=== PATIENT | female | born 2000 | race Two or more races ===

== ENCOUNTER 2021-05-28 13:25 | Inpatient (IN) | payer OTHER ==
[~2021-05-28] VITALS: Ht 175.3 cm; Wt 106.3 kg
[2021-05-28 14:15] LABS: Mean Corpuscular Hgb Conc. 34.3 g/dL (32.0-36.0); Red Cell Distribution Width 14.2 % (11.8-14.3)
[2021-05-28 14:17] LABS: Hematocrit 30.7 % (36.0-46.0); Hemoglobin 10.5 g/dL (12.2-16.2); Mean Corpuscular Volume 78.8 fL (80.0-100.0); White Blood Cell 8.2 10^3/uL (4.4-10.8)
[2021-05-28] MEDS ORDERED: ACETAMINOPHEN 325 MG TAB PO ONE ×2 (14:30→16:00)
[2021-05-28] MEDS ORDERED: SODIUM CHLORIDE 0.9% 1,000 ML IV ONE ×2 (14:30→17:30)
[2021-05-28 14:32] LABS: Potassium 3.2 mmol/L (3.5-5.1)
[2021-05-28 14:36] LABS: Bilirubin, Total 0.5 mg/dL (0.2-1.0); Total Protein 10.2 g/dL (6.4-8.2)
[2021-05-28 14:56] LABS: Basophils % (manual) 0 (0.0-2.0); Blast Cells 0; Eosinophils % (manual) 0 (0-7); Metamyelocytes % 0; Myelocytes % 0; Promyelocytes % 0; Reactive Lymphocytes 0
[2021-05-28] MEDS ORDERED: SODIUM CHLORIDE 0.9% 1,000 ML IVB ONE (15:15)
[2021-05-28 15:47] LABS: Magnesium 1.5 mg/dL (1.6-2.6)
[2021-05-28 16:09] LABS: Beta HCG, Quantitative < 1 mlU/mL (1-3); Thyroid Stimulating Hormone 0.69 uIU/mL (0.358-3.74)
[2021-05-28 16:37] LABS: Band Neutrophils % (manual) 5; Lymphocytes % (manual) 2 (10.0-50.0); Monocytes % (manual) 6 (0-12)
[2021-05-28] MEDS ORDERED: POTASSIUM EFFERVESENT TAB 25 MEQ PO ONE (17:00)
[2021-05-28 17:28] LABS: Urine Amorphous Crystal FEW /hpf (None Seen); Urine Bacteria FEW /hpf (None Seen); Urine Blood Negative /uL (Negative); Urine Mucus FEW (None Seen); Urine Specific Gravity 1.011 (1.001-1.035); Urine WBC 1 /hpf (0 - 5)
[2021-05-28] MEDS: MAGNESIUM SULFATE 1GM/100ML 100 ML IV SCH ×2 (17:28→20:27)
[2021-05-28] MEDS ORDERED: NITROGLYCERIN 0.4 MG SL TAB SL PRN (18:15)
[2021-05-28] MEDS ORDERED: MORPHINE SULFATE INJECTION 2 MG/ML SYRG IV PRN ×2 (18:15→20:30)
[2021-05-28] MEDS ORDERED: cefTRIAXone 1GM/50ML D5W 50 ML IV ONE ×2 (18:15→19:00)
[2021-05-28] MEDS ORDERED: VANCOMYCIN PER PHARMACY 0 MG IV SCH (18:30)
[2021-05-28] MEDS ORDERED: ACYCLOVIR SOD 50MG/ML 800 MG in SODIUM CHL 0.9% 250 ML IV ONE (18:30)
[2021-05-28] MEDS ORDERED: DexAMETHasone SOD PHOS 10MG/1ML VIAL INJ IV ONE (19:00)
[2021-05-28] MEDS ORDERED: POTASSIUM CHL 20 Meq TABLET PO ONE (19:00)
[2021-05-28] MEDS ORDERED: METOPROLOL TARTRATE 1MG/1ML-5ML VIAL IV PRN (19:00)
[2021-05-28 19:15] LABS: Amphetamine Screen, Urine NEGATIVE (NEGATIVE); Barbiturate Scree,Urine NEGATIVE (NEGATIVE); Benzodiazephine Screen, Urine NEGATIVE (NEGATIVE); Cannabinoid Screen, Urine NEGATIVE (NEGATIVE); Cocaine Screen, Urine NEGATIVE (NEGATIVE); Opiate Scree,Urine NEGATIVE (NEGATIVE); Phencyclidine Screen, Urine NEGATIVE (NEGATIVE)
[2021-05-28] MEDS ORDERED: MAGNESIUM SULFATE 1GM/100ML 100 ML IV ONE (19:30)
[2021-05-28] MEDS ORDERED: diphenhdrAMINE HCL 50 MG/1 ML VL IV ONE (19:45)
[2021-05-28] MEDS ORDERED: ACETAMINOPHEN 650 mg PER 20.3 mL UD GT ONE (19:45)
[2021-05-28] MEDS ORDERED: IBUPROFEN 400 MG TAB PO ONE (19:45)
[2021-05-28 20:26] LABS: INR 1.16 (0.9-1.15); Partial Thromboplastin Time 30.8 sec (23.6-33.0)
[2021-05-28] MEDS ORDERED: ACETAMINOPHEN 325 MG TAB PO PRN (20:30)
[2021-05-28] MEDS ORDERED: FOLIC ACID 1 MG TAB PO ONE (20:30)
[2021-05-28] MEDS ORDERED: LORazepam 0.5 MG TAB PO PRN (20:30)
[2021-05-28] MEDS ORDERED: IPRATROPIUM BROM 0.5 MG/2.5ML INH SOL NEB ONE (20:30)
[2021-05-28] MEDS ORDERED: PANTOPRAZOLE 40 MG/10 ML VIAL INJ IV ONE (20:30)
[2021-05-28] MEDS ORDERED: POTASSIUM CHL 20MEQ/100ML 100 ML IV ONE (20:30)
[2021-05-28] MEDS ORDERED: ARTIFICIAL TEARS 15ml EACHEYE PRN (20:30)
[2021-05-28] MEDS ORDERED: SUCRALFATE 1 GM/10 ML ORAL SUSP PO ONE (20:30)
[2021-05-28] MEDS ORDERED: HYDROcodone-ACET 5/325MG TAB PO ONE (20:30)
[2021-05-28] MEDS ORDERED: SODIUM CHLORIDE 0.9% 1,000 ML IV SCH (20:30)
[2021-05-28] MEDS ORDERED: ONDANSETRON HCL 4 MG/2 ML VIAL IV PRN (20:30)
[2021-05-28] MEDS ORDERED: FERROUS SULFATE 325mg EC TAB PO ONE (20:30)
[2021-05-28] MEDS ORDERED: DOCUSATE SOD 100 MG CAP PO PRN (20:30)
[2021-05-28 20:36] LABS: Magnesium 1.8 mg/dL (1.6-2.6); Phosphorus 3.3 mg/dL (2.5-4.90)
[2021-05-28 22:00] VITALS: BP 94/56
[2021-05-28] MEDS ORDERED: IPRATROPIUM BROM 0.5 MG/2.5ML INH SOL NEB SCH (22:00)
[2021-05-28] MEDS: DexAMETHasone SOD PHOS 10MG/1ML VIAL INJ IV SCH (23:49)
[2021-05-28] MEDS: ATORVASTATIN 20 MG TAB PO SCH (23:50)
[2021-05-28] MEDS: hydrOXYchloroQUINE SULFATE 200 MG TAB PO SCH (23:50)
[2021-05-28] MEDS: VANCOMYCIN 1GM/250ML 250 ML IV SCH (23:52)
[2021-05-29] VITALS (7 sets, daily range): BP systolic 94–120; BP diastolic 17–73
[2021-05-29] MEDS ORDERED: METH2.5T PO (01:14)
[2021-05-29] MEDS ORDERED: HYDR200T36 PO (01:17)
[2021-05-29] MEDS ORDERED: BELI200I SC (01:17)
[2021-05-29] MEDS: DexAMETHasone SOD PHOS 10MG/1ML VIAL INJ IV SCH ×2 (06:20→14:00)
[2021-05-29] MEDS: SUCRALFATE 1 GM/10 ML ORAL SUSP PO SCH ×4 (06:21→22:07)
[2021-05-29 06:40] LABS: Basophils # (auto) 0 10 ^3/uL (0-0.2); Basophils % (auto) 0.3 % (0.0-2.0); Eosinophils # (auto) 0 10 ^3/uL (0-0.8); Hematocrit 28.5 % (36.0-46.0); Hemoglobin 9.7 g/dL (12.2-16.2); Lymphocytes # (auto) 0.2 10 ^3/uL (0.4-5.4); Lymphocytes % (auto) 1.7 % (10.0-50.0); Mean Corpuscular Hemoglobin 27.1 pg (28.0-32.0); Mean Corpuscular Hgb Conc. 34.1 g/dL (32.0-36.0); Mean Corpuscular Volume 79.4 fL (80.0-100.0); Monocytes # (auto) 0.5 10 ^3/uL (0-1.3); Monocytes % (auto) 3.8 % (0.0-12.0); Neutrophils # (auto) 11.4 10 ^3/uL (1.6-8.6); Neutrophils % (auto) 94.2 % (37.0-80.0); Nucleated Red Blood Cells % 0.1 %; Red Blood Cells 3.59 10^6/uL (4.0-5.20); Red Cell Distribution Width 14.6 % (11.8-14.3); White Blood Cell 12.1 10^3/uL (4.4-10.8)
[2021-05-29 06:56] LABS: Albumin 2.3 g/dL (3.4-5.0); Calcium 7.3 mg/dL (8.5-10.1); Magnesium 2.5 mg/dL (1.6-2.6); Potassium 3.4 mmol/L (3.5-5.1)
[2021-05-29 07:08] LABS: BUN/Creatinine Ratio 9.8; Bilirubin, Total 0.5 mg/dL (0.2-1.0); Phosphorus 3.2 mg/dL (2.5-4.90); Total Protein 9.5 g/dL (6.4-8.2); Uric Acid 5.4 mg/dL (2.6-6.0)
[2021-05-29 07:26] LABS: CRP High Sensitivity 13.9 mg/dL (< 0.3)
[2021-05-29 07:28] LABS: INR 1.17 (0.9-1.15); Partial Thromboplastin Time 31.2 sec (23.6-33.0)
[2021-05-29] MEDS: FERROUS SULFATE 325mg EC TAB PO SCH ×3 (08:00→17:58)
[2021-05-29] MEDS: CHOLECALCIFEROL (VITD3) 2,000 UNIT CAP/TAB PO SCH (10:00)
[2021-05-29] MEDS: FOLIC ACID 1 MG TAB PO SCH (10:00)
[2021-05-29] MEDS: PANTOPRAZOLE 40 MG/10 ML VIAL INJ IV SCH (10:00)
[2021-05-29] MEDS: CEFTRIAXONE SODIUM 2 GM in D5W 5% 50 ML IV SCH (10:00)
[2021-05-29] MEDS: ENOXAPARIN SOD 40 MG/0.4 ML SYRINGE SC SCH (10:00)
[2021-05-29] MEDS: hydrOXYchloroQUINE SULFATE 200 MG TAB PO SCH ×2 (10:00→22:08)
[2021-05-29] MEDS: THIAMINE HCL 100 MG TAB PO SCH (10:00)
[2021-05-29] MEDS: CYANOCOBALAMIN 500 MCG TAB PO SCH (10:00)
[2021-05-29] MEDS ORDERED: POTASSIUM CHL 20MEQ/100ML 100 ML IV ONE (11:45)
[2021-05-29] MEDS: VANCOMYCIN 1GM/250ML 250 ML IV SCH (12:00)
[2021-05-29] MEDS: FUROSEMIDE 20 MG/2 ML VIAL IV SCH (17:57)
[2021-05-29] MEDS: ATORVASTATIN 20 MG TAB PO SCH (22:07)
[2021-05-29] MEDS: MAGNESIUM OXIDE 400 MG TAB PO SCH (22:07)
[2021-05-29] MEDS: POTASSIUM CHL 20 Meq TABLET PO SCH (22:08)
[2021-05-30] MEDS ORDERED: VANCOMYCIN 1GM/250ML 250 ML IV ONE (00:17)
[2021-05-30] MEDS: VANCOMYCIN 1GM/250ML 250 ML IV SCH ×3 (00:25→20:30)
[2021-05-30 05:00] VITALS: BP 114/75
[2021-05-30 06:21] LABS: Basophils # (auto) 0 10 ^3/uL (0-0.2); Basophils % (auto) 0.4 % (0.0-2.0); Eosinophils # (auto) 0 10 ^3/uL (0-0.8); Hematocrit 26.2 % (36.0-46.0); Hemoglobin 9.3 g/dL (12.2-16.2); Lymphocytes # (auto) 0.3 10 ^3/uL (0.4-5.4); Lymphocytes % (auto) 3.2 % (10.0-50.0); Mean Corpuscular Hemoglobin 28.1 pg (28.0-32.0); Mean Corpuscular Hgb Conc. 35.6 g/dL (32.0-36.0); Mean Corpuscular Volume 79.1 fL (80.0-100.0); Monocytes # (auto) 0.6 10 ^3/uL (0-1.3); Monocytes % (auto) 5.5 % (0.0-12.0); Neutrophils # (auto) 9.9 10 ^3/uL (1.6-8.6); Neutrophils % (auto) 90.9 % (37.0-80.0); Red Blood Cells 3.31 10^6/uL (4.0-5.20); Red Cell Distribution Width 14.4 % (11.8-14.3); White Blood Cell 10.8 10^3/uL (4.4-10.8)
[2021-05-30 06:29] LABS: Albumin 2.1 g/dL (3.4-5.0); INR 0.98 (0.9-1.15); Partial Thromboplastin Time 27.3 sec (23.6-33.0)
[2021-05-30] MEDS: SUCRALFATE 1 GM/10 ML ORAL SUSP PO SCH (06:29)
[2021-05-30] MEDS: FUROSEMIDE 20 MG/2 ML VIAL IV SCH (06:30)
[2021-05-30] MEDS: DexAMETHasone SOD PHOS 10MG/1ML VIAL INJ IV SCH (06:30)
[2021-05-30 06:34] LABS: BUN/Creatinine Ratio 25.8; Bilirubin, Total 0.3 mg/dL (0.2-1.0); Magnesium 2.3 mg/dL (1.6-2.6); Phosphorus 2.4 mg/dL (2.5-4.90); Total Protein 8.5 g/dL (6.4-8.2)
[2021-05-30 09:00] VITALS: BP 107/63
[2021-05-30] MEDS: ENOXAPARIN SOD 40 MG/0.4 ML SYRINGE SC SCH (09:05)
[2021-05-30] MEDS: CEFTRIAXONE SODIUM 2 GM in D5W 5% 50 ML IV SCH (09:29)
[2021-05-30] MEDS: PANTOPRAZOLE 40 MG/10 ML VIAL INJ IV SCH (09:29)
[2021-05-30] MEDS: THIAMINE HCL 100 MG TAB PO SCH (09:29)
[2021-05-30] MEDS: FERROUS SULFATE 325mg EC TAB PO SCH (09:29)
[2021-05-30] MEDS: POTASSIUM CHL 20 Meq TABLET PO SCH (09:29)
[2021-05-30] MEDS: FOLIC ACID 1 MG TAB PO SCH (09:30)
[2021-05-30] MEDS: CHOLECALCIFEROL (VITD3) 2,000 UNIT CAP/TAB PO SCH (09:30)
[2021-05-30] MEDS: MAGNESIUM OXIDE 400 MG TAB PO SCH (09:30)
[2021-05-30] MEDS: hydrOXYchloroQUINE SULFATE 200 MG TAB PO SCH ×2 (09:30→23:13)
[2021-05-30] MEDS: CYANOCOBALAMIN 500 MCG TAB PO SCH (09:30)
[2021-05-30] MEDS ORDERED: OSELTAMIVIR 75 MG CAP PO ONE (10:15)
[2021-05-30 13:00] VITALS: BP 114/75
[2021-05-30] MEDS ORDERED: VANCOMYCIN 1GM/250ML 250 ML IV SCH ×2 (13:45→20:00)
[2021-05-30 16:58] VITALS: BP 125/51
[2021-05-30] MEDS ORDERED: CALCIUM CARB 500 MG CHEW TAB PO ONE (20:30)
[2021-05-30 22:00] VITALS: BP 107/59
[2021-05-30] MEDS: OSELTAMIVIR 75 MG CAP PO SCH (23:13)
[2021-05-31] MEDS: VANCOMYCIN 1GM/250ML 250 ML IV SCH ×3 (04:20→20:16)
[2021-05-31 05:00] VITALS: BP 119/80
[2021-05-31 05:41] LABS: Calcium 7.9 mg/dL (8.5-10.1); Potassium 3.9 mmol/L (3.5-5.1)
[2021-05-31 05:43] LABS: BUN/Creatinine Ratio 35.6
[2021-05-31 08:00] VITALS: BP 128/72
[2021-05-31] MEDS: ENOXAPARIN SOD 40 MG/0.4 ML SYRINGE SC SCH (08:38)
[2021-05-31] MEDS: hydrOXYchloroQUINE SULFATE 200 MG TAB PO SCH ×2 (08:44→22:20)
[2021-05-31] MEDS: OSELTAMIVIR 75 MG CAP PO SCH ×2 (08:44→22:19)
[2021-05-31 12:00] VITALS: BP 104/66
[2021-05-31 16:00] VITALS: BP 116/75
[2021-05-31 22:00] VITALS: BP 105/61
[2021-06-01] MEDS: VANCOMYCIN 1GM/250ML 250 ML IV SCH (04:01)
[2021-06-01 05:00] VITALS: BP 104/62
[2021-06-01 09:00] VITALS: BP 92/51
[2021-06-01] MEDS ORDERED: CEFTRIAXONE SODIUM 2 GM in D5W 5% 50 ML IV ONE (10:15)
[2021-06-01] MEDS: OSELTAMIVIR 75 MG CAP PO SCH ×2 (10:43→22:04)
[2021-06-01] MEDS: hydrOXYchloroQUINE SULFATE 200 MG TAB PO SCH ×2 (10:43→22:04)
[2021-06-01 13:00] VITALS: BP 124/80
[2021-06-01 17:00] VITALS: BP 108/64
[2021-06-01] MEDS: HYDROcodone-ACET 5/325MG TAB PO PRN (19:55)
[2021-06-01 22:00] VITALS: BP 93/48
[2021-06-02] MEDS: HYDROcodone-ACET 5/325MG TAB PO PRN (04:47)
[2021-06-02 05:00] VITALS: BP 102/49
[2021-06-02 09:00] VITALS: BP 95/47
[2021-06-02] MEDS: CEFTRIAXONE SODIUM 2 GM in D5W 5% 50 ML IV SCH (09:10)
[2021-06-02] MEDS: hydrOXYchloroQUINE SULFATE 200 MG TAB PO SCH ×2 (09:11→22:03)
[2021-06-02] MEDS: OSELTAMIVIR 75 MG CAP PO SCH ×2 (09:11→22:03)
[2021-06-02 13:00] VITALS: BP 81/42
[2021-06-02] MEDS ORDERED: METHOTREXATE 2.5 MG TAB PO SCH (14:30)
[2021-06-02] MEDS ORDERED: FOLIC ACID 1 MG TAB PO ONE (14:30)
[2021-06-02] MEDS ORDERED: predniSONE 5 MG TAB PO ONE (14:45)
[2021-06-02 17:00] VITALS: BP 100/58
[2021-06-02 22:00] VITALS: BP 93/42
[2021-06-03 05:00] VITALS: BP 91/51
[2021-06-03 08:30] VITALS: BP 104/56
[2021-06-03 09:00] VITALS: BP 104/56
[2021-06-03 09:24] LABS: Hemoglobin 11.1 g/dL (12.2-16.2); Mean Corpuscular Volume 79.4 fL (80.0-100.0)
[2021-06-03 09:26] LABS: Mean Corpuscular Hemoglobin 26.8 pg (28.0-32.0); Mean Corpuscular Hgb Conc. 33.8 g/dL (32.0-36.0); Red Blood Cells 4.15 10^6/uL (4.0-5.20); Red Cell Distribution Width 14.2 % (11.8-14.3); White Blood Cell 5.3 10^3/uL (4.4-10.8)
[2021-06-03 09:45] LABS: BUN/Creatinine Ratio 18.3; Calcium 8.4 mg/dL (8.5-10.1); Potassium 3.8 mmol/L (3.5-5.1)
[2021-06-03 09:49] LABS: Basophils % (manual) 0 (0.0-2.0); Blast Cells 0; Metamyelocytes % 0; Myelocytes % 0; Promyelocytes % 0; Reactive Lymphocytes 0
[2021-06-03] MEDS ORDERED: predniSONE 5 MG TAB PO SCH (10:00)
[2021-06-03] MEDS ORDERED: FOLIC ACID 1 MG TAB PO SCH (10:00)
[2021-06-03] MEDS ORDERED: PANTOPRAZOLE 40 MG TAB PO SCH (10:00)
[2021-06-03] MEDS: hydrOXYchloroQUINE SULFATE 200 MG TAB PO SCH (10:30)
[2021-06-03] MEDS: CEFTRIAXONE SODIUM 2 GM in D5W 5% 50 ML IV SCH (10:30)
[2021-06-03] MEDS: OSELTAMIVIR 75 MG CAP PO SCH ×2 (10:30→15:50)
[2021-06-03 11:30] LABS: Band Neutrophils % (manual) 3; Eosinophils % (manual) 1 (0-7); Lymphocytes % (manual) 16 (10.0-50.0); Monocytes % (manual) 4 (0-12)
[2021-06-03] MEDS ORDERED: METH4PAK PO (12:12)
[2021-06-03 13:00] VITALS: BP 102/55
[2021-06-03 14:53] VITALS: BP 114/75
== END 2021-06-03 16:00 | disposition home health service (06) | DRG 113 ==
LOC: ER 13:25 → OVERFLOW 18:10 → CENTRAL 20:53 → EAST 05-29 23:08
PROVIDERS: ADMIT Hospitalist; ATTEND Internal Medicine
PROC: 05HC33Z Insertion of Infusion Device into Left Basilic Vein, Percutaneous Approach (ICD-10-PCS; principal; 2021-06-01)
PROC: B54NZZA Ultrasonography of Left Upper Extremity Veins, Guidance (ICD-10-PCS; 2021-06-01)
DX: J10.1 Influenza due to other identified influenza virus with other respiratory manifestations (principal); D69.6 Thrombocytopenia, unspecified; D84.89 Other immunodeficiencies; R65.10 Systemic inflammatory response syndrome (SIRS) of non-infectious origin without acute organ dysfunction; B95.3 Streptococcus pneumoniae as the cause of diseases classified elsewhere; D50.9 Iron deficiency anemia, unspecified; E87.6 Hypokalemia; E83.42 Hypomagnesemia; M35.00 Sjogren syndrome, unspecified; F41.9 Anxiety disorder, unspecified; E78.5 Hyperlipidemia, unspecified; Z20.822 Contact with and (suspected) exposure to COVID-19; E66.01 Morbid (severe) obesity due to excess calories; Z68.32 Body mass index [BMI] 32.0-32.9, adult; Z83.3 Family history of diabetes mellitus
CPT/HCPCS: 36415; 70450; 71045; 71046; 74176; 80048; 80053; 80061; 80202; 80307; 81001; 81025; 82550; 82728; 83036; 83605; 83615; 83690; 83735; 83880; 84100; 84443; 84484; 84550; 84702; 85007; 85025; 85027; 85379; 85610; 85652; 85730; 86141; 87040; 87070; 87077; 87086; 87186; 87804; 87880; 93005; 93306; 96361; 96365; 96367; 96375; C9113; G0378; J0696; J1100; J3480; J7060